=== PATIENT | male | born 1970 | race Caucasian/White ===

== ENCOUNTER 2017-02-05 15:55 | Emergency (ER) | payer BC, OTHER ==
[~2017-02-05] VITALS: Ht 193 cm; Wt 158.8 kg
[2017-02-05 16:39] LABS: BILIRUBIN,URINE SMALL (NEG); GLUCOSE,URINE NEGATIVE (NEG); NITRITE,URINE NEGATIVE (NEG); PROTEIN,URINE 100 mg/dL (NEG-TRACE); UROBILINOGEN,URINE 0.2 mg/dL (0.2 mg/dL)
[2017-02-05 17:04] LABS: BASO # 0.1 x10^3/uL (0.0-0.2); BASO % 1 % (0-3); EOS % 1 % (0-3); HEMATOCRIT 42.6 % (39.0-53.0); HEMOGLOBIN 14.1 g/dL (13.0-17.5); LYMPH # 2.3 x10^3/uL (1.0-4.8); LYMPH % 21 % (24-48); MEAN CORPUSCULAR HEMOGLOBIN 28 pg (25-35); MEAN CORPUSCULAR HGB CONC 33 g/dL (31-37); MEAN CORPUSCULAR VOLUME 85 fL (79-100); MONO % 6 % (0-9); NEUT % 71 % (31-73); PLATELET COUNT 294 x10^3/uL (140-400); RED BLOOD COUNT 4.98 x10^6/uL (4.30-5.70); RED CELL DISTRIBUTION WIDTH 14.5 % (11.5-14.5); WHITE BLOOD COUNT 10.6 x10^3/uL (4.0-11.0)
[2017-02-05 17:12] LABS: CALCIUM 9.6 mg/dL (8.5-10.1); CREATININE 1.1 mg/dL (0.7-1.3); GFR 72.1; POTASSIUM 4.2 mmol/L (3.5-5.1)
[2017-02-05 17:18] LABS: ALBUMIN 3.9 g/dL (3.4-5.0); TOTAL BILIRUBIN 0.3 mg/dL (0.2-1.0); TOTAL PROTEIN 7.8 g/dL (6.4-8.2)
--- NOTE | 2017-02-05 17:22 | RAD ---
CT abdomen/pelvis Indication: Hematuria Technique: CT abdomen/pelvis without IV contrast with multiplanar reformats. Comparison: None Findings: Limited study due to lack of IV contrast. Heart is normal in size. No pericardial or pleural effusion. Clear lung bases. Liver is enlarged measuring 24 cm in craniocaudal dimension. Spleen is mildly enlarged measuring 14 cm. Noncontrast appearance of the pancreas and adrenals are within normal limits. No radiopaque gallstones. There is a large mass in the right kidney measuring 8.4 x 10.0 x 10.2 cm centered within the inferior pole and extending to the collecting system. Central area of necrosis noted. Scattered calcifications noted in this mass. Fat plane between this mass and the liver is preserved. There is peritumoral neovascularity. No obstructing renal stones or hydronephrosis. No retroperitoneal or pelvic adenopathy. Prominent common hepatic artery lymph nodes noted. No bowel obstruction. Normal appendix. No omental, peritoneal and mesenteric disease. Bladder show no focal lesion. Prostate and seminal vesicles are within normal limits. No adenopathy. Sclerotic focus seen within posterior aspect of the left acetabulum and right acetabulum likely bony islands. Degenerative disc disease in the lower lumbar spine. Impression: Limited evaluation due to lack of IV contrast. 1. Centrally necrotic mass in the right kidney highly concerning for renal cell carcinoma. Evaluation of extension into the right renal vein or IVC is limited due to lack of IV contrast. 2. Hepatosplenomegaly. PQRS Compliance Statement: One or more of the following individualized dose reduction techniques were utilized for this examination: 1. Automated exposure control 2. Adjustment of the mA and/or kV according to patient size 3. Use of iterative reconstruction technique
[2017-02-05 17:26] LABS: BACTERIA,URINE FEW /HPF (0-FEW); SQUAMOUS EPITHELIAL CELL,UR OCC /LPF; WBC,URINE 20-40 /HPF (0-4)
[2017-02-05] MEDS ORDERED: CIPR500T94 PO (18:24)
--- NOTE | 2017-02-05 18:24 | PHYS DOC ---
Past Medical History Past Medical History: Hypertension Past Surgical History: No Surgical History Alcohol Use: Occasionally Drug Use: None Adult General Chief Complaint Chief Complaint: BLOOD IN URINE HPI HPI Patient is a 46 year old male who presents with painless hematuria. Patient reports just prior to arrival he had 2 episodes of seeing red blood and clots in his urine. This was preceded by urinary urgency. Denies any associated fevers or chills, nausea or vomiting, abdominal pain or flank pain, hematochezia or melena. Denies previous history of similar symptoms. Denies use of blood thinners. History of hypertension. Nonsmoker. Review of Systems Review of Systems Constitutional: Denies fever or chills HENT: Denies nasal congestion or sore throat Respiratory: Denies cough or shortness of breath Cardiovascular: Denies chest pain or edema GI: Denies abdominal pain, nausea, vomiting, bloody stools or diarrhea : Denies dysuria, reports hematuria Musculoskeletal: Denies back pain or joint pain Integument: Denies rash or skin lesions Neurologic: Denies headache Allergies Allergies Allergies Coded Allergies Type Severity Reaction Last Updated Verified No Known Drug Allergies 02/05/17 No Physical Exam Physical Exam Constitutional: Obese, no acute distress, non-toxic appearance. HENT: Normocephalic, atraumatic, bilateral external ears normal, oropharynx moist, nose normal. Eyes: conjunctiva normal, no discharge. Neck: supple, no stridor. Cardiovascular: RRR, no murmurs, no edema. Lungs & Thorax: LCTAB, no wheezing, no respiratory distress. Abdomen: soft, nontender, nondistended. No masses or pulsatile masses, no rebound or guarding Skin: Warm, dry, no erythema, no rash. Back: No CVA tenderness. Extremities: No tenderness, no edema. Neurologic: Alert and oriented X 3, no focal deficits noted. Psychologic: Affect normal, judgement normal, mood normal. Current Patient Data Vital Signs Vital Signs Date Time Temp Pulse Resp B/P (MAP) Pulse Ox O2 Delivery O2 Flow Rate FiO2 02/05/17 18:30 83 17 148/100 (116) 97 Room Air 02/05/17 16:00 98.3 98.3 Lab Values Laboratory Tests Test 02/05/17 16:00 02/05/17 17:00 Urine Color Victorina Urine Clarity Cloudy Urine pH 6.0 Urine Specific [place] >=1.030 Urine Protein 100 mg/dL (NEG-TRACE) Urine Glucose (UA) Negative mg/dL (NEG) Urine Ketones (Stick) Trace mg/dL (NEG) Urine Blood Large (NEG) Urine Nitrite Negative (NEG) Urine Bilirubin Small (NEG) Urine Urobilinogen Dipstick 0.2 mg/dL (0.2 mg/dL) Urine Leukocyte Esterase Moderate (NEG) Urine RBC 6-10 /HPF (0-2) Urine WBC 20-40 /HPF (0-4) Urine Squamous Epithelial Cells Occ /LPF Urine Amorphous Sediment Present /HPF Urine Bacteria Few /HPF (0-FEW) Urine Mucus Mod /LPF White Blood Count 10.6 x10^3/uL (4.0-11.0) Red Blood Count 4.98 x10^6/uL (4.30-5.70) Hemoglobin 14.1 g/dL (13.0-17.5) Hematocrit 42.6 % (39.0-53.0) Mean Corpuscular Volume 85 fL (79-100) Mean Corpuscular Hemoglobin 28 pg (25-35) Mean Corpuscular Hemoglobin Concent 33 g/dL (31-37) Red Cell Distribution Width 14.5 % (11.5-14.5) Platelet Count 294 x10^3/uL (140-400) Neutrophils (%) (Auto) 71 % (31-73) Lymphocytes (%) (Auto) 21 % (24-48) L Monocytes (%) (Auto) 6 % (0-9) Eosinophils (%) (Auto) 1 % (0-3) Basophils (%) (Auto) 1 % (0-3) Neutrophils # (Auto) 7.6 x10^3uL (1.8-7.7) Lymphocytes # (Auto) 2.3 x10^3/uL (1.0-4.8) Monocytes # (Auto) 0.6 x10^3/uL (0.0-1.1) Eosinophils # (Auto) 0.1 x10^3/uL (0.0-0.7) Basophils # (Auto) 0.1 x10^3/uL (0.0-0.2) Sodium Level 142 mmol/L (136-145) Potassium Level 4.2 mmol/L (3.5-5.1) Chloride Level 106 mmol/L (98-107) Carbon Dioxide Level 28 mmol/L (21-32) Anion Gap 8 (6-14) Blood Urea Nitrogen 16 mg/dL (8-26) Creatinine 1.1 mg/dL (0.7-1.3) Estimated GFR (Cockcroft-Gault) 72.1 BUN/Creatinine Ratio 15 (6-20) Glucose Level 99 mg/dL (70-99) Calcium Level 9.6 mg/dL (8.5-10.1) Total Bilirubin 0.3 mg/dL (0.2-1.0) Aspartate Amino Transferase (AST) 16 U/L (15-37) Alanine Aminotransferase (ALT) 26 U/L (16-63) Alkaline Phosphatase 101 U/L (46-116) Total Protein 7.8 g/dL (6.4-8.2) Albumin 3.9 g/dL (3.4-5.0) Albumin/Globulin Ratio 1.0 (1.0-1.7) Laboratory Tests 02/05/17 17:00 Laboratory Tests 02/05/17 17:00 EKG EKG [] Radiology/Procedures Radiology/Procedures PROCEDURE: CT ABDOMEN PELVIS WO CONTRAST CT abdomen/pelvis Indication: Hematuria Technique: CT abdomen/pelvis without IV contrast with multiplanar reformats. Comparison: None Findings: Limited study due to lack of IV contrast. Heart is normal in size. No pericardial or pleural effusion. Clear lung bases. Liver is enlarged measuring 24 cm in craniocaudal dimension. Spleen is mildly enlarged measuring 14 cm. Noncontrast appearance of the pancreas and adrenals are within normal limits. No radiopaque gallstones. There is a large mass in the right kidney measuring 8.4 x 10.0 x 10.2 cm centered within the inferior pole and extending to the collecting system. Central area of necrosis noted. Scattered calcifications noted in this mass. Fat plane between this mass and the liver is preserved. There is peritumoral neovascularity. No obstructing renal stones or hydronephrosis. No retroperitoneal or pelvic adenopathy. Prominent common hepatic artery lymph nodes noted. No bowel obstruction. Normal appendix. No omental, peritoneal and mesenteric disease. Bladder show no focal lesion. Prostate and seminal vesicles are within normal limits. No adenopathy. Sclerotic focus seen within posterior aspect of the left acetabulum and right acetabulum likely bony islands. Degenerative disc disease in the lower lumbar spine. Impression: Limited evaluation due to lack of IV contrast. 1. Centrally necrotic mass in the right kidney highly concerning for renal cell carcinoma. Evaluation of extension into the right renal vein or IVC is limited due to lack of IV contrast. 2. Hepatosplenomegaly. PQRS Compliance Statement: One or more of the following individualized dose reduction techniques were utilized for this examination: 1. Automated exposure control 2. Adjustment of the mA and/or kV according to patient size 3. Use of iterative reconstruction technique DICTATED and SIGNED BY: JESSICA LUNA DO DATE: 02/05/17 1711[] Course & Med Decision Making Course & Med Decision Making Pertinent Labs and Imaging studies reviewed. (See chart for details) The patient presents with painless hematuria. UA confirms presence of blood as well as white blood cells. Normal creatinine, no leukocytosis or anemia. Obtained CT of the abdomen and pelvis which shows renal mass concerning for renal cell carcinoma. Vascular involvement difficult to assess as IV contrast was not administered. I discussed results with Dr. Be, recommends that the patient follow-up with urology at [facility]. I discussed with transfer center and they are able to arrange follow-up with Dr. Carcamo on Sunday which is in 4 days. Transfer center was given the patient's phone number and I also provided him with the clinic phone number. I discussed results at length with the patient and his significant other, he is aware of high likelihood of cancer and importance of close follow-up to determine next steps for treatment. I did provide prescription for Cipro for urinary tract infection. Recommend return to the emergency department for high fever, uncontrolled vomiting, severe pain, inability to urinate, any otherwise worsening condition. Discharged home in stable condition. [] Dragon Disclaimer Dragon Disclaimer This electronic medical record was generated, in whole or in part, using a voice recognition dictation system. Departure Departure Impression: Primary Impression: Hematuria Additional Impression: Right renal mass Disposition: HOME, SELF-CARE Condition: STABLE Referrals: NO PCP (PCP) Patient Instructions: Hematuria, Adult, Renal Cell Cancer Additional Instructions: You were seen in the emergency department today for blood in your urine. The CT scan was very concerning for renal cell cancer. More testing and evaluation is necessary to give detailed information about next steps & treatment. We recommend following up with Dr. Carcamo with Urology. They should call you in the morning tomorrow but if you do not receive a call, you can contact them at [phone]. They should see you on Sunday. If there is any difficulty scheduling appointment, make sure to tell them that you were seen in the emergency department today. Take the prescribed antibiotic. Come back for high fever, severe pain, uncontrolled vomiting, any otherwise worsening condition. Scripts Ciprofloxacin Hcl (CIPRO) 500 Mg Tablet 1 TAB PO BID, #14 TAB Prov: CONCHITA TILLEY MD 02/05/17 Problem Qualifiers CONCHITA TILLEY MD Feb 05, 2017 18:24
[2017-02-05 18:30] VITALS: BP 148/100
== END 2017-02-05 18:34 | disposition home or self-care (01) ==
LOC: ER 15:55
DX: R31.9 Hematuria, unspecified (principal); I10 Essential (primary) hypertension; N28.89 Other specified disorders of kidney and ureter
CPT/HCPCS: 36415; 74176; 80053; 81001; 85025; 87086; 99285-25